=== PATIENT | female | born 1990 ===

== ENCOUNTER → 2020-08-23 | Emergency (ER) | payer OTHER ==
[~2020-08-23] VITALS: Ht 157.5 cm; Wt 63.5 kg
[~2020-08-23] MED LIST: SYNTHROID50 MCG PO; WELLBUTRIN XL150 M1 PO
== END | disposition left against medical advice (07) ==
LOC: ER 13:26
DX: Z53.20 Procedure and treatment not carried out because of patient's decision for unspecified reasons (principal)